=== PATIENT | female | born 1930 | race Caucasian/White ===

== ENCOUNTER 2016-09-29 05:02 | Emergency (ER) | payer MEDICARE, BC ==
[2016-09-29 06:27] LABS: ABSOLUTE EOSINOPHILS # (AUTO) 0.2 10^3/uL (0.0-0.6); ABSOLUTE LYMPHOCYTES (AUTO) 0.9 10^3/uL (0.5-4.7); ABSOLUTE MONOCYTES (AUTO) 0.8 10^3/uL (0.1-1.4); ABSOLUTE NEUT (AUTO) 4.8 10^3/uL (1.7-8.2); BASOPHILS % (AUTO) 0.6 % (0-2); HEMATOCRIT 38.3 % (36.0-47.0); HEMOGLOBIN 12.4 g/dL (12.0-15.5); HGB HCT DIFFERENCE -1.1; LYMPHOCYTES % (AUTO) 12.9 % (13-45); MEAN CORPUSCULAR HEMOGLOBIN 30.9 pg (27.0-33.4); MEAN CORPUSCULAR HGB CONC 32.3 g/dL (32.0-36.0); MEAN CORPUSCULAR VOLUME 96 fl (80-97); MONOCYTES % (AUTO) 11.7 % (3-13); RED CELL DISTRIBUTION WIDTH 14.1 % (11.5-14.0); SEGMENTED NEUTROPHILS % (AUTO) 71.8 % (42-78); WHITE BLOOD COUNT 6.7 10^3/uL (4.0-10.5)
[2016-09-29 06:32] LABS: ALANINE AMINOTRANSFERASE 23 U/L (9-52); ALKALINE PHOSPHATASE 79 U/L (38-126); ANION GAP 9 (5-19); ASPARTATE AMINO TRANSFERASE 28 U/L (14-36); BILIRUBIN,TOTAL 0.7 mg/dL (0.2-1.3); BLOOD UREA NITROGEN 19 mg/dL (7-20); CALCIUM 9.5 mg/dL (8.4-10.2); CARBON DIOXIDE 29 mmol/L (22-30); CHLORIDE 105 mmol/L (98-107); CREATINE KINASE 47 U/L (30-135); CREATININE RESULT 0.64 mg/dL (0.52-1.25); GLUCOSE 103 mg/dL (75-110); POTASSIUM 4.5 mmol/L (3.6-5.0); SODIUM 142.6 mmol/L (137-145); TOTAL PROTEIN 6.6 g/dL (6.3-8.2)
[2016-09-29 06:44] LABS: CREATINE KINASE MB 0.74 ng/mL (<4.55); TROPONIN I 0.012 ng/mL
[2016-09-29 09:07] LABS: APPEARANCE,URINE CLEAR; BILIRUBIN,URINE NEGATIVE (NEGATIVE); GLUCOSE, URINE NEGATIVE (NEGATIVE); KETONES,URINE NEGATIVE (NEGATIVE); LEUKOCYTE ESTERASE,URINE NEGATIVE (NEGATIVE); NITRITE,URINE NEGATIVE (NEGATIVE); PROTEIN,URINE NEGATIVE (NEGATIVE); URINE SPECIFIC GRAVITY 1.011; UROBILINOGEN,URINE NEGATIVE mg/dL (<2.0)
--- NOTE | 2016-09-29 09:33 | ER Document Report ---
ED General - General Chief Complaint: Nausea/Vomiting Stated Complaint: NAUSEA/VOMITING Mode of Arrival: Ambulatory Information source: Patient Notes: 86-year-old female presents with complaints of dizziness sensation room spinning. Patient denies any chest pain shortness breath difficulty breathing down pain or any other concerns except over the past few days she's been hearing a swishing sound in her ears. Patient notes it sound like a grinding rocks sound earlier today. Patient denies any neurological deficits or any other concerns - HPI Onset: Just prior to arrival Onset/Duration: Sudden Quality of pain: No pain Severity: Mild Pain Level: Denies Associated symptoms: Other Exacerbated by: Denies Relieved by: Denies Similar symptoms previously: Yes Recently seen / treated by doctor: Yes Past Medical History - Social History Smoking Status: Never Smoker Cigarette use (# per day): No Chew tobacco use (# tins/day): No Smoking Education Provided: No Family History: Reviewed & Not Pertinent Review of Systems - Review of Systems Notes: REVIEW OF SYSTEMS: CONSTITUTIONAL : Denies fever, chills, or sweats. Denies recent illness. EENT: Denies eye, ear, throat, or mouth pain or symptoms. Denies nasal or sinus congestion or discharge. Denies throat, tongue, or mouth swelling or difficulty swallowing. CARDIOVASCULAR: Denies chest pain. Denies palpitations or racing or irregular heart beat. Denies ankle edema. RESPIRATORY: Denies cough, cold, or chest congestion. Denies shortness of breath, difficulty breathing, or wheezing. GASTROINTESTINAL: Denies abdominal pain or distention. Denies nausea, vomiting , or diarrhea. Denies blood in vomitus, stools, or per rectum. Denies black, tarry stools. Denies constipation. GENITOURINARY: Denies difficulty urinating, painful urination, burning, frequency, blood in urine, or discharge. FEMALE GENITOURINARY: Denies vaginal bleeding, heavy or abnormal periods, irregular periods. Denies vaginal discharge or odor. MUSCULOSKELETAL: Denies back or neck pain or stiffness. Denies joint pain or swelling. SKIN: Denies rash, lesions or sores. HEMATOLOGIC : Denies easy bruising or bleeding. LYMPHATIC: Denies swollen, enlarged glands. NEUROLOGICAL: Admits to dizziness PSYCHIATRIC: Denies anxiety or stress. Denies depression, suicidal ideation, or homicidal ideation. ALL OTHER SYSTEMS REVIEWED AND NEGATIVE. Dictation was performed using Dragon voice recognition software PHYSICAL EXAMINATION: GENERAL: Well-appearing, well-nourished and in no acute distress. HEAD: Atraumatic, normocephalic. EYES: Pupils equal round and reactive to light, extraocular movements intact, conjunctiva are normal. ENT: Nares patent, oropharynx clear without exudates. Moist mucous membranes. NECK: Normal range of motion, supple without lymphadenopathy LUNGS: Breath sounds clear to auscultation bilaterally and equal. No wheezes rales or rhonchi. HEART: Regular rate and rhythm without murmurs ABDOMEN: Soft, nontender, nondistended abdomen. No guarding, no rebound. No masses appreciated. Female : deferred Musculoskeletal: Normal range of motion, no pitting or edema. No cyanosis. NEUROLOGICAL: Cranial nerves grossly intact. Normal speech, normal gait. Normal sensory, motor exams PSYCH: Normal mood, normal affect. SKIN: Warm, Dry, normal turgor, no rashes or lesions noted. Physical Exam - Vital signs Vitals: Temp Pulse Resp BP Pulse Ox 97.7 F 84 17 151/92 H 97 09/29/16 05:06 09/29/16 05:06 09/29/16 05:06 09/29/16 05:06 09/29/16 05:06 Course - Re-evaluation Re-evalutation: 09/29/16 09:32 Patient symptoms have resolved prior to arrival, she refused treatment. Imaging lab work note no significant abnormality, I believe this is secondary to intra-ear issue After performing a Medical Screening Examination, I estimate there is LOW risk for INTRACRANIAL HEMORRHAGE, ISCHEMIC CVA, MALIGNANT DYSRHYTHMIA, ACUTE CORONARY SYNDROME, MENINGITIS, PULMONARY EMBOLISM, or SEPSIS thus I consider the discharge disposition reasonable. The patient and I have discussed the diagnosis and risks, and we agree with discharging home with close follow-up with the understanding that symptoms and presentations can change. We also discussed returning to the Emergency Department immediately if new or worsening symptoms occur. We have discussed the symptoms which are most concerning (e.g., changing or worsening pain, weakness, vomiting, fever) that necessitate immediate return. - Vital Signs Vital signs: Temp Pulse Resp BP Pulse Ox 97.7 F 84 17 151/92 H 97 09/29/16 05:06 09/29/16 05:06 09/29/16 05:06 09/29/16 05:06 09/29/16 05:06 - Laboratory Result Diagrams: 09/29/16 05:50 09/29/16 05:50 Laboratory results interpreted by me: 09/29/16 09/29/16 05:50 05:50 RDW 14.1 H Lymphocytes % 12.9 L NT-Pro-B Natriuret Pep 1230 H - Diagnostic Test Radiology reviewed: Image reviewed, Reports reviewed - EKG Interpretation by Me EKG shows normal: Sinus rhythm, [place], Intervals, QRS Complexes Discharge - Discharge Clinical Impression: Vertigo Condition: Stable Disposition: HOME, SELF-CARE Additional Instructions: Vertigo You have experienced an episode of vertigo -- a whirling dizziness which may be accompanied by nausea and vomiting or staggering. Vertigo is often caused by an irritation of the inner ear, in which case it is called labyrinthitis. It can also be a symptom of a degenerating inner ear, nerve damage, or brain injury. Your physician has evaluated you to determine whether any further testing is necessary. Vertigo is often treated with dramamine or meclizine. These medications are helpful, but stronger medication may be needed if you are vomiting. Rest in bed. You should not drive or operate machinery until completely better. It may take one to three weeks for recovery. If there are new symptoms, such as decreased hearing or vision, severe headache, weakness or faintness, or confusion, call the physician. Please contact the following office for an appointment tomorrow or returm immediately if there are any other concerns [facility] Address: [address] [place], [place] [id number] Prescriptions: Meclizine HCl [Antivert 25 mg Tablet] 25 mg PO TID PRN #21 tablet PRN Reason:
[2016-09-29 09:43] VITALS: BP 127/54
--- NOTE | 2016-09-29 14:57 | EKG REPORT ---
SEVERITY:- ABNORMAL ECG - AFIB/FLUTTER AND VENTRICULAR-PACED RHYTHM : Confirmed by: Jacklyn Dias MD 29-Sep-2016 14:56:26
== END 2016-09-29 09:45 | disposition home or self-care (01) ==
LOC: ER 05:02
DX: R42 Dizziness and giddiness (principal)
CPT/HCPCS: 36415; 70450; 71020; 80053; 81001; 82550; 82553; 83880; 84484; 85025; 93005; 93010; 99284

== ENCOUNTER 2017-11-20 18:59 | Inpatient (IN) | payer MEDICARE, BC ==
[2017-11-20] MEDS ORDERED: ACETAMINOPHEN 325 MG TABLET PO ONE (19:11)
--- NOTE | 2017-11-20 19:31 | ER Document Report ---
ED General - General Chief Complaint: Fall Injury Stated Complaint: FALL/HIP PAIN Time Seen by Provider: 11/20/17 19:17 Mode of Arrival: Medic Information source: Patient, Relative Notes: 87 y/o female with history of osteoarthritis, hypertension, atrial fibrillation (on pradaxa), scoliosis and a pacemaker presents after a trip and fall at home with complaint of left hip and left flank pain. Patient states that she turned around too quickly while at home and fell landing on her left side onto a hardwood floor. She denies any head injury, loss of consciousness. She was unable to get off the floor independently. She does have a history of previous left hip fracture in 1999. Denies preceding CP, SOB, dizziness. She was under orthopedic care with Dr. Schuster for chronic back pain. She has otherwise been feeling well. she reports she is eating and drinking normally. Patient does live alone but has daughter close by who is at the bedside. TRAVEL OUTSIDE OF THE [place] IN LAST 30 DAYS: No - HPI Onset: Just prior to arrival Quality of pain: Throbbing Severity: Mild Associated symptoms: None Exacerbated by: Sitting, Movement Relieved by: Remaining still Similar symptoms previously: No Recently seen / treated by doctor: No - Related Data Allergies/Adverse Reactions: procaine [From Novocain] Allergy (Verified 11/20/17 19:19) Past Medical History - General Information source: Patient, Relative - Social History Smoking Status: Never Smoker Chew tobacco use (# tins/day): No Frequency of alcohol use: None Drug Abuse: None Lives with: Alone Family History: Reviewed & Not Pertinent Patient has suicidal ideation: No Patient has homicidal ideation: No - Past Medical History Cardiac Medical History: Reports: Hx Atrial Fibrillation, Hx Hypertension Renal/ Medical History: Denies: Hx Peritoneal Dialysis Review of Systems - Review of Systems Constitutional: denies: Weakness EENT: denies: Blurred vision, Double vision - chest wall pain-left., Vertigo Cardiovascular: denies: Palpitations, Dyspnea, Syncope, Dizziness, Lightheaded Respiratory: Hurts to breathe. denies: Short of breath Gastrointestinal: denies: Nausea, Vomiting Genitourinary: Flank pain. denies: Dysuria Female Genitourinary: No symptoms reported Musculoskeletal: Joint pain - left hip pain. denies: Deformity Skin: denies: Change in color, Rash Physical Exam - Vital signs Vitals: Temp 97.8 F 11/20/17 19:18 Interpretation: Normal. No: Tachycardic, Febrile - General General appearance: Appears well, Alert In distress: Mild - HEENT Head: Normocephalic - no cephalohematoma, midface stable. no blood in pharyn or nose. no hemotypanum., Atraumatic. No: Abrasions - Neck without midline tenderness or stepoffs., Arreguin's sign, Ecchymosis, Open wounds, Tenderness Eyes: Normal Conjunctiva: Normal Extraocular movements intact: Yes Pupils: PERRL Mucous membranes: Dry Neck: Normal, Other - No midline tenderness.. No: Neck mass - Respiratory Respiratory status: No respiratory distress. No: Respiratory distress Chest status: Tender - Left lateral chest wall. No ecchymosis or crepitus, Pain with deep breathing. No: Ecchymosis Breath sounds: Normal Chest palpation: Normal. No: Flail segment - Cardiovascular Rhythm: Irregularly irregular Heart sounds: Normal auscultation Murmur: No Pulses: Normal: Radial, Dorsalis pedis Normal capillary refill: Yes - Abdominal Inspection: Normal Distension: No distension Bowel sounds: Normal Tenderness: Tender - suprapubic TTP Organomegaly: No organomegaly - Extremities General upper extremity: Normal inspection, Normal strength General lower extremity: Tender, Normal color, Other - No obvious deformity. No : Normal ROM, Normal weight bearing Shoulder: Normal Hip: Tender, Pain with ROM, Unable to bear weight. No: Deformity, Dislocation, Ecchymosis Thigh: Tender. No: Ecchymosis Ankle: Normal Foot: Normal - Neurological Neuro grossly intact: Yes Cognition: Normal Orientation: AAOx4 Hima Coma Scale Eye Opening: Spontaneous Hima Coma Scale Verbal: Oriented [place] Coma Scale Motor: Obeys Commands [place] Coma Scale Total: 15 Speech: Normal Motor strength normal: LUE, RUE, LLE, RLE Sensory: Normal - Psychological Associated symptoms: Normal affect, Normal mood - Skin Skin Temperature: Warm Skin Moisture: Dry Skin Color: Normal. negative: Erythema, Ecchymosis Course - Re-evaluation Re-evalutation: 11/20/17 22:29 Patient was reevaluated and states that pain has improved but is still present. Potassium replenished. Patient received additional morphine for pain and is still unable to ambulate. Hip X-Ray 11/20/17 19:10 IMPRESSION: 1. Osteopenia. No radiographic evidence for acute fracture at the left hip. 2. Fractures with callus formation at the left superior and inferior pubic rami , suggestive of remote injury. Additional linear lucencies at the left pubic bone, may represent artifact versus nondisplaced acute fractures. No prior studies are available for comparison. Please correlate with clinical history/ exam. Chest X-Ray 11/20/17 19:31 IMPRESSION: Mild cardiomegaly. Otherwise, no acute radiographic finding in the chest. Pelvis CT 11/20/17 21:20 IMPRESSION: Fracture left superior pubic ramus. 11/21/17 00:[address] Fairchild orthopedic surgeon on-call and reviewed CT findings. No further recommendations at this time. I Will discuss patient with hospitalist. 11/21/17 00:[address] Goins who wants a surgery consult. Spoke to Dr. Barcenas who will not admit the patient primarily but will be on consult. 11/21/17 01:06 11/21/17 01:14 A 87-year-old female with history of atrial fibrillation, pacemaker, hypertension, osteoarthritis, previous pelvic fracture on Pradaxa had a trip and fall at home prior to arrival. Patient found to have a superior rami fracture with an associated hematoma. Repeat CT with IV contrast shows no active extravasation but recommends repeat CT in 24 hours. 11/21/17 01:20 Admission accepted by hospitalist pending normal troponin. 11/21/17 02:49 Patient signed out to Dr. Cazares pending troponin results. Informed daughter of the plan to admit her mother prior to wi leaving. Both daughter and patient are agreeable to admission. Laboratory 11/20/17 11/20/17 11/21/17 22:52 23:03 00:59 WBC 12.8 H RBC 3.91 Hgb 12.9 Hct 38.1 MCV 97 MCH 33.0 MCHC 33.8 RDW 14.9 H Plt Count 271 Seg Neutrophils % 78.3 H Lymphocytes % 10.0 L Monocytes % 10.1 Eosinophils % 1.1 Basophils % 0.5 Absolute Neutrophils 10.0 H Absolute Lymphocytes 1.3 Absolute Monocytes 1.3 Absolute Eosinophils 0.1 Absolute Basophils 0.1 PT 16.8 H INR 1.28 APTT 53.6 H Sodium 130.2 L Potassium 3.2 L Chloride 98 Carbon Dioxide 27 Anion Gap 5 BUN 39 H Creatinine 0.73 Est GFR ( Amer) > 60 Est GFR (Non-Af Amer) > 60 Glucose 124 H Calcium 9.1 Creatine Kinase CK-MB (CK-2) Troponin I Urine Color Urine Appearance Urine pH Ur Specific Echo Urine Protein Urine Glucose (UA) Urine Ketones Urine Blood Urine Nitrite Urine Bilirubin Urine Urobilinogen Ur Leukocyte Esterase Urine WBC (Auto) Urine RBC (Auto) Urine Mucus (Auto) Urine Ascorbic Acid 11/21/17 11/21/17 11/21/17 00:59 00:59 01:25 WBC RBC Hgb Hct MCV MCH MCHC RDW Plt Count Seg Neutrophils % Lymphocytes % Monocytes % Eosinophils % Basophils % Absolute Neutrophils Absolute Lymphocytes Absolute Monocytes Absolute Eosinophils Absolute Basophils PT INR APTT Sodium Potassium Chloride Carbon Dioxide Anion Gap BUN Creatinine Est GFR ( Amer) Est GFR (Non-Af Amer) Glucose Calcium Creatine Kinase 65 CK-MB (CK-2) 1.05 Troponin I 0.018 Urine Color YELLOW Urine Appearance SLIGHTLY-CLOUDY Urine pH 5.0 Ur Specific Echo 1.044 Urine Protein NEGATIVE Urine Glucose (UA) 50 H Urine Ketones TRACE H Urine Blood NEGATIVE Urine Nitrite NEGATIVE Urine Bilirubin NEGATIVE Urine Urobilinogen NEGATIVE Ur Leukocyte Esterase NEGATIVE Urine WBC (Auto) 1 Urine RBC (Auto) 1 Urine Mucus (Auto) RARE Urine Ascorbic Acid 40 H - Vital Signs Vital signs: Temp Pulse Resp BP Pulse Ox 97.7 F 14 109/53 L 98 11/21/17 02:05 11/21/17 02:01 11/21/17 02:01 11/21/17 02:01 - Laboratory Result Diagrams: 11/20/17 22:52 11/20/17 23:03 Laboratory results interpreted by me: 11/20/17 11/20/17 11/21/17 22:52 23:03 00:59 WBC 12.8 H RDW 14.9 H Seg Neutrophils % 78.3 H Lymphocytes % 10.0 L Absolute Neutrophils 10.0 H PT 16.8 H APTT 53.6 H Sodium 130.2 L Potassium 3.2 L BUN 39 H Glucose 124 H Urine Glucose (UA) Urine Ketones Urine Ascorbic Acid 11/21/17 01:25 WBC RDW Seg Neutrophils % Lymphocytes % Absolute Neutrophils PT APTT Sodium Potassium BUN Glucose Urine Glucose (UA) 50 H Urine Ketones TRACE H Urine Ascorbic Acid 40 H - Diagnostic Test Radiology reviewed: Image reviewed, Reports reviewed - EKG Interpretation by Me EKG shows normal: abnormal: Sinus rhythm Rhythm: A.Fib - known a-fib Discharge - Discharge Clinical Impression: Hypokalemia, Inability to ambulate due to hip Pelvic fracture Qualifiers: Encounter type: initial encounter Pelvic bone location: other part of pelvis Fracture type: closed Qualified Code(s): S32.89XA - Fracture of other parts of pelvis, initial encounter for closed fracture Fracture of superior ramus of left pubis Qualifiers: Encounter type: initial encounter Fracture type: closed Qualified Code(s): S32.512A - Fracture of superior rim of left pubis, initial encounter for closed fracture Fall Qualifiers: Encounter type: initial encounter Qualified Code(s): W19.XXXA - Unspecified fall, initial encounter Condition: Good Admitting Provider: Hospitalist Referrals: SERGIO SCHUSTER MD [ASSOCIATE] - Follow up as needed BLAKE DELGADO MD [Primary Care Provider] - Follow up in 3-5 days
--- NOTE | 2017-11-20 20:29 | RADIOLOGY REPORT (SQ) ---
EXAM DESCRIPTION: HIP LEFT AP/LATERAL COMPLETED DATE/TIME: 11/20/2017 7:56 pm REASON FOR STUDY: fall COMPARISON: None. NUMBER OF VIEWS: Two views. TECHNIQUE: AP pelvis and additional frog-leg view of the left hip. LIMITATIONS: Osteopenia, limiting bony detail. FINDINGS: There is diffuse osteopenia. There is no acute fracture or dislocation at the left hip. Fractures with callus formation are seen at the left superior and inferior pubic rami. Additional li near lucencies are seen at the left pubic bone. The right hip joint is maintained. Degenerative luis nges at the visualized lower lumbar spine and at the bilateral sacroiliac joints. IMPRESSION: 1. Osteopenia. No radiographic evidence for acute fracture at the left hip. 2. Fractures with callus formation at the left superior and inferior pubic rami, suggestive of remote injury. Additional linear lucencies at the left pubic bone, may represent artifact versus nondispla ania acute fractures. No prior studies are available for comparison. Please correlate with clinical history/ exam. TECHNICAL DOCUMENTATION: JOB ID: [id number] 2010 [employer]- All Rights Reserved Reading location - IP/workstation name: [email or web address]
--- NOTE | 2017-11-20 20:33 | RADIOLOGY REPORT (SQ) ---
EXAM DESCRIPTION: CHEST PA/LAT COMPLETED DATE/TIME: 11/20/2017 7:56 pm REASON FOR STUDY: Fall left lower rib pain COMPARISON: Chest x-ray 09/29/2016. EXAM PARAMETERS: NUMBER OF VIEWS: two views TECHNIQUE: Digital Frontal and Lateral radiographic views of the chest acquired. RADIATION DOSE: NA LIMITATIONS: none FINDINGS: LUNGS AND PLEURA: No consolidation, pneumothorax or pleural effusion. MEDIASTINUM AND HILAR STRUCTURES: No masses or contour abnormalities. HEART AND VASCULAR STRUCTURES: The heart is mildly enlarged. No overt vascular congestion. BONES: There is osteopenia. No displaced rib fractures are noted. There is thoracolumbar scoliosis. HARDWARE: There is a right-sided pacemaker. IMPRESSION: Mild cardiomegaly. Otherwise, no acute radiographic finding in the chest. TECHNICAL DOCUMENTATION: JOB ID: [id number] [place]-[id number] 2010 [employer]- All Rights Reserved Reading location - IP/workstation name: [email or web address]
[2017-11-20] MEDS ORDERED: TRAMADOL HCL 50 MG TABLET PO ONE (21:19)
--- NOTE | 2017-11-20 22:08 | RADIOLOGY REPORT (SQ) ---
EXAM DESCRIPTION: CT PELVIS WITHOUT COMPLETED DATE/TIME: 11/20/2017 9:47 pm REASON FOR STUDY: fall with left hip pain COMPARISON: None. TECHNIQUE: CT scan of the pelvis performed without intravenous or oral contrast. Images reviewed wi th soft tissue and bone windows. Reconstructed coronal and sagittal MPR images reviewed. All images stored on PACS. All CT scanners at this facility use dose modulation, iterative reconstruction, and/or weight based d osing when appropriate to reduce radiation dose to as low as reasonably achievable (ALARA). [facility]: Dose Right [facility]: CareDose [facility]: Dose Right [facility]: Teradose 4D [facility]: Smart [employer] RADIATION DOSE: CT Rad equipment meets quality standard of care and radiation dose reduction techniq ues were employed. CTDIvol: 14.0 mGy. DLP: 401 mGy-cm. mGy. LIMITATIONS: None. FINDINGS: Bones are osteopenic. Nondisplaced fracture of the left superior pubic ramus. There is a djacent hematoma. There is a healed fracture of the left inferior pubic ramus. No other acute fract ure identified. IMPRESSION: Fracture left superior pubic ramus. TECHNICAL DOCUMENTATION: JOB ID: [id number] Quality ID # [id number]: Final reports with documentation of one or more dose reduction techniques (e.g., Au tomated exposure control, adjustment of the mA and/or kV according to patient size, use of iterative reconstruction technique) 2010 [employer]- All Rights Reserved Reading location - IP/workstation name: [email or web address]
[2017-11-20] MEDS ORDERED: MORPHINE SULFATE 10 MG/ML INJ IV ONE (22:27)
[2017-11-20] MEDS ORDERED: ONDANSETRON 4 MG TAB.RAPDIS PO ONE (22:27)
[2017-11-20 23:37] LABS: ANION GAP 5 (5-19); BLOOD UREA NITROGEN 39 mg/dL (7-20); CALCIUM 9.1 mg/dL (8.4-10.2); CARBON DIOXIDE 27 mmol/L (22-30); CHLORIDE 98 mmol/L (98-107); GLUCOSE 124 mg/dL (75-110); POTASSIUM 3.2 mmol/L (3.6-5.0); SODIUM 130.2 mmol/L (137-145)
[2017-11-20] MEDS ORDERED: POTASSIUM CHLORIDE 20 MEQ/15 ML UDCUP PO ONE (23:42)
[2017-11-20] MEDS ORDERED: NORMAL SALINE 1000 ML 1,000 ML IV ONE (23:43)
--- NOTE | 2017-11-21 00:31 | RADIOLOGY REPORT (SQ) ---
EXAM DESCRIPTION: CT PELVIS WITH CLINICAL HISTORY: 87 years Female, Hematoma on CT concerning for active extravasation COMPARISON: CT and CR, same day. TECHNIQUE: 64 mL Isovue-370 IV contrast. Coronal and sagittal reformat. This exam was performed according to our departmental dose-optimization program, which includes automated exposure control, adjustment of the mA and/or kV according to patient size and/or use of iterative reconstruction technique. Limitation: No delayed imaging of the pelvis/urinary bladder. FINDINGS: Comminuted fracture of the left paracentral pubic symphysis and left superior pubic ramus with adjacent moderate isodense 1.9 cm, 39 HU thickening of the left obturator internus compared to 1.2 cm on the right consistent with hematoma. No active hemorrhage/contrast extravasation discerned. Obturator artery appears patent bilaterally. Chronic deformity of the left inferior pubic ramus and junction of the left inferior pubic ramus/ischium consistent with prior injury. Normal appendix. Moderate diverticulosis of the colon. No significant free fluid in the pelvis. Urinary bladder appears intact. Lower lumbar spondylosis. Bone demineralization. Mild-moderate vertebral height loss at the L5 and L4 levels, indeterminate age. Atherosclerosis. IMPRESSION: Comminuted fracture of the left superior pubic ramus with adjacent hematoma of the left obturator internus. No active hemorrhage identified. Consider CT surveillance in 24 hours or sooner as clinically warranted.
[2017-11-21 00:46] LABS: ABSOLUTE BASOPHILS # (AUTO) 0.1 10^3/uL (0.0-0.2); ABSOLUTE EOSINOPHILS # (AUTO) 0.1 10^3/uL (0.0-0.6); ABSOLUTE LYMPHOCYTES (AUTO) 1.3 10^3/uL (0.5-4.7); ABSOLUTE MONOCYTES (AUTO) 1.3 10^3/uL (0.1-1.4); BASOPHILS % (AUTO) 0.5 % (0-2); EOSINOPHILS % (AUTO) 1.1 % (0-6); HEMATOCRIT 38.1 % (36.0-47.0); HEMOGLOBIN 12.9 g/dL (12.0-15.5); MEAN CORPUSCULAR HGB CONC 33.8 g/dL (32.0-36.0); MEAN CORPUSCULAR VOLUME 97 fl (80-97); MONOCYTES % (AUTO) 10.1 % (3-13); PLATELET COUNT 271 10^3/uL (150-450); RED BLOOD COUNT 3.91 10^6/uL (3.72-5.28); RED CELL DISTRIBUTION WIDTH 14.9 % (11.5-14.0); SEGMENTED NEUTROPHILS % (AUTO) 78.3 % (42-78); TOTAL CELLS COUNTED % (AUTO) 100 %; WHITE BLOOD COUNT 12.8 10^3/uL (4.0-10.5)
[2017-11-21 01:18] LABS: INTERNATIONAL RATION (INR) 1.28; PROTHROMBIN TIME 16.8 SEC (11.4-15.4)
[2017-11-21 01:20] LABS: PARTIAL THROMBOPLASTIN TIME 53.6 SEC (23.5-35.8)
--- NOTE | 2017-11-21 01:22 | PDOC CONSULTATION ---
Consultation Consult Date: 11/21/17 Consult reason:: left pelvic fracture History of Present Illness Admission Date/PCP: BLAKE DELGADO MD History of Present Illness: CATHERINE ARANGO is a 87 year old female who fell this afternoon while in the kitchen. No reported LOC or other neurological findings according to the daughter who went to see her mother shortly after the event. She c/o lef lower pelvis pain and difficult ambulation. A CT scan A/P shpws a left superior pubic ramus comminuted fracture with small obteratir hematoma. She is on Pradaxa and has a pacemaker because of atrial fibrillation and has a history of TIA in the past. Past Medical History Cardiac Medical History: Reports: Atrial Fibrillation, Hypertension Endocrine Medical History: Reports: Other - TIAs in the past Past Surgical History Past Surgical History: Reports: Pacemaker Social History Lives with: Alone Smoking Status: Never Smoker Frequency of Alcohol Use: None Hx Recreational Drug Use: No Family History Family History: Reviewed & Not Pertinent Parental Family History Reviewed: No Children Family History Reviewed: No Sibling(s) Family History Reviewed.: No Medication/Allergy Home Medications: Meclizine HCl [Antivert 25 mg Tablet] 25 mg PO TID PRN #21 tablet 09/29/16 Allergies/Adverse Reactions: procaine [From Novocain] Allergy (Verified 11/20/17 19:19) Physical Exam Vital Signs: Temp Pulse Resp BP Pulse Ox 97.9 F 15 141/61 H 95 11/20/17 23:00 11/21/17 01:00 11/21/17 00:01 11/21/17 01:00 Intake & Output 11/19/17 11/20/17 11/21/17 06:59 06:59 06:59 Weight 56.699 kg General appearance: PRESENT: no acute distress, cooperative Head exam: PRESENT: atraumatic Neck exam: PRESENT: full ROM Respiratory exam: PRESENT: clear to auscultation miguel Cardiovascular exam: PRESENT: RRR GI/Abdominal exam: PRESENT: normal bowel sounds, soft, tenderness - left lower quadrant near symphisis pubis Extremities exam: PRESENT: other - decreased ROM LLE due to pain Neurological exam: PRESENT: alert, awake, other - no neuro deficits Skin exam: PRESENT: skin tears - left hand Results Laboratory Results: 11/20/17 22:52 11/20/17 23:03 11/20/17 11/20/17 22:52 23:03 WBC 12.8 H RBC 3.91 Hgb 12.9 Hct 38.1 MCV 97 MCH 33.0 MCHC 33.8 RDW 14.9 H Plt Count 271 Seg Neutrophils % 78.3 H Lymphocytes % 10.0 L Monocytes % 10.1 Eosinophils % 1.1 Basophils % 0.5 Absolute Neutrophils 10.0 H Absolute Lymphocytes 1.3 Absolute Monocytes 1.3 Absolute Eosinophils 0.1 Absolute Basophils 0.1 Sodium 130.2 L Potassium 3.2 L Chloride 98 Carbon Dioxide 27 Anion Gap 5 BUN 39 H Creatinine 0.73 Est GFR ( Amer) > 60 Est GFR (Non-Af Amer) > 60 Glucose 124 H Calcium 9.1 Impressions: Hip X-Ray 11/20/17 19:10 IMPRESSION: 1. Osteopenia. No radiographic evidence for acute fracture at the left hip. 2. Fractures with callus formation at the left superior and inferior pubic rami , suggestive of remote injury. Additional linear lucencies at the left pubic bone, may represent artifact versus nondisplaced acute fractures. No prior studies are available for comparison. Please correlate with clinical history/ exam. Chest X-Ray 11/20/17 19:31 IMPRESSION: Mild cardiomegaly. Otherwise, no acute radiographic finding in the chest. Pelvis CT 11/20/17 22:35 IMPRESSION: Comminuted fracture of the left superior pubic ramus with adjacent hematoma of the left obturator internus. No active hemorrhage identified. Consider CT surveillance in 24 hours or sooner as clinically warranted. Assessment & Plan - Diagnosis (1) Fall Qualifiers: Encounter type: initial encounter Qualified Code(s): W19.XXXA - Unspecified fall, initial encounter (2) Fracture of superior ramus of left pubis Qualifiers: Encounter type: initial encounter Fracture type: closed Qualified Code(s) : S32.512A - Fracture of superior rim of left pubis, initial encounter for closed fracture Is this a current diagnosis for this admission?: Yes - Plan Summary Plan Summary: A/ Fall with secondary comminuted fracture of left superior pubic ramus Small internal obturator muscle hematoma Patient with atrial fibrillation on Pradaxa (last dose last evening) S/p pacemaker placement for atrial fibrillation Hx of TIA Stable H/H P/ Admit by Hospitalist recommend Orthopaedic Surgery service consult Follow serial H/H Keep NPO for now IV fluids Hold Pradaxa Insert Bhandari as the patient cannot void If patient H/H remains stable during the next 24 hrs, she can be discharged to home by the General Surgery viewpoint
[2017-11-21] MEDS ORDERED: NORMAL SALINE 1000 ML 1,000 ML IV PRN (01:25)
[2017-11-21] MEDS ORDERED: IPRATROPIUM/ALBUTEROL 0.5-2.5 MG/3 ML AMPUL NEB PRN (01:33)
[2017-11-21] MEDS ORDERED: KETOROLAC TROMETHAMINE INJ/PF 30 MG/1 ML SDV IV PRN (01:33)
[2017-11-21] MEDS ORDERED: MAG HYDROX/AL HYDROX/SIMETH SUSP 30 ML UDCUP PO PRN (01:33)
[2017-11-21] MEDS ORDERED: HYDRALAZINE HCL INJ/PF 20 MG/1 ML SDV IV PRN (01:33)
[2017-11-21] MEDS ORDERED: ACETAMINOPHEN 325 MG TABLET PO PRN (01:33)
[2017-11-21 01:39] LABS: APPEARANCE,URINE SLIGHTLY-CLOUDY; BILIRUBIN,URINE NEGATIVE (NEGATIVE); COLOR,URINE YELLOW; GLUCOSE, URINE 50 mg/dL (NEGATIVE); KETONES,URINE TRACE mg/dL (NEGATIVE); LEUKOCYTE ESTERASE,URINE NEGATIVE (NEGATIVE); NITRITE,URINE NEGATIVE (NEGATIVE); PROTEIN,URINE NEGATIVE (NEGATIVE); URINE SPECIFIC GRAVITY 1.044; UROBILINOGEN,URINE NEGATIVE mg/dL (<2.0)
[2017-11-21 01:39] LABS: CREATINE KINASE MB 1.05 ng/mL (<4.55); TROPONIN I 0.018 ng/mL
--- NOTE | 2017-11-21 05:04 | PDOC H&P ---
History of Present Illness Admission Date/PCP: 11/21/17 03:32 BLAKE DELGADO MD Patient complains of: Left hip pain History of Present Illness: CATHERINE ARANGO is a 87 year old female with a past medical history of atrial fibrillation on Pradaxa, hypertension, osteoporosis and gait instability requiring a front wheeled walker. Patient presents after a mechanical slip resulting in a left-sided fall to the floor and intractable pain. In the emergency room she is found to have a left superior pubic rami comminuted fracture with small hematoma complicated by Pradaxa. In the emergency room she requires narcotics at rest and is unable to stand, hospitalist is consulted for observation. Past Medical History Cardiac Medical History: Reports: Atrial Fibrillation, Hypertension Endocrine Medical History: Reports: Other - TIAs in the past Past Surgical History Past Surgical History: Reports: Orthopedic Surgery - Right-sided hip fracture, Pacemaker Social History Information Source: Patient Lives with: Alone Smoking Status: Never Smoker Frequency of Alcohol Use: None Hx Recreational Drug Use: No - Advance Directive Resuscitation Status: Full Code Family History Family History: Hypertension Parental Family History Reviewed: Yes Children Family History Reviewed: Yes Sibling(s) Family History Reviewed.: Yes Medication/Allergy Home Medications: Meclizine HCl [Antivert 25 mg Tablet] 25 mg PO TID PRN #21 tablet 09/29/16 Allergies/Adverse Reactions: procaine [From Novocain] Allergy (Verified 11/20/17 19:19) Review of Systems Constitutional: ABSENT: chills, fever(s), headache(s), weight gain, weight loss Eyes: ABSENT: visual disturbances Ears: ABSENT: hearing changes Cardiovascular: ABSENT: chest pain, dyspnea on exertion, edema, orthropnea, palpitations Respiratory: ABSENT: cough, hemoptysis Gastrointestinal: ABSENT: abdominal pain, constipation, diarrhea, hematemesis, hematochezia, nausea, vomiting Genitourinary: ABSENT: dysuria, hematuria Musculoskeletal: ABSENT: joint swelling Integumentary: ABSENT: rash, wounds Neurological: ABSENT: abnormal gait, abnormal speech, confusion, dizziness, focal weakness, syncope Psychiatric: ABSENT: anxiety, depression, homidical ideation, suicidal ideation Endocrine: ABSENT: cold intolerance, heat intolerance, polydipsia, polyuria Hematologic/Lymphatic: ABSENT: easy bleeding, easy bruising Physical Exam Vital Signs: Temp Pulse Resp BP Pulse Ox 98.2 F 12 106/48 L 96 11/21/17 04:55 11/21/17 04:01 11/21/17 04:00 11/21/17 04:01 General appearance: PRESENT: cooperative, mild distress, thin Head exam: PRESENT: atraumatic, normocephalic Eye exam: PRESENT: conjunctiva pink, EOMI, PERRLA. ABSENT: scleral icterus Ear exam: PRESENT: normal external ear exam Mouth exam: PRESENT: moist, tongue midline Neck exam: ABSENT: carotid bruit, JVD, lymphadenopathy, thyromegaly Respiratory exam: PRESENT: clear to auscultation miguel. ABSENT: rales, rhonchi, wheezes Cardiovascular exam: PRESENT: RRR. ABSENT: diastolic murmur, rubs, systolic murmur Pulses: PRESENT: normal dorsalis pedis pul Vascular exam: PRESENT: normal capillary refill GI/Abdominal exam: PRESENT: normal bowel sounds, soft. ABSENT: distended, guarding, mass, organolmegaly, rebound, tenderness Rectal exam: PRESENT: deferred Extremities exam: PRESENT: full ROM. ABSENT: calf tenderness, clubbing, pedal edema Musculoskeletal exam: ABSENT: ambulatory, full ROM - Hip flexion on the left limited by pain Neurological exam: PRESENT: alert, awake, oriented to person, oriented to place , oriented to time, oriented to situation, CN II-XII grossly intact. ABSENT: motor sensory deficit Psychiatric exam: PRESENT: appropriate affect, normal mood. ABSENT: homicidal ideation, suicidal ideation Skin exam: PRESENT: dry, intact, warm. ABSENT: cyanosis, rash Results Impressions: Hip X-Ray 11/20/17 19:10 IMPRESSION: 1. Osteopenia. No radiographic evidence for acute fracture at the left hip. 2. Fractures with callus formation at the left superior and inferior pubic rami , suggestive of remote injury. Additional linear lucencies at the left pubic bone, may represent artifact versus nondisplaced acute fractures. No prior studies are available for comparison. Please correlate with clinical history/ exam. Chest X-Ray 11/20/17 19:31 IMPRESSION: Mild cardiomegaly. Otherwise, no acute radiographic finding in the chest. Pelvis CT 11/20/17 22:35 IMPRESSION: Comminuted fracture of the left superior pubic ramus with adjacent hematoma of the left obturator internus. No active hemorrhage identified. Consider CT surveillance in 24 hours or sooner as clinically warranted. Assessment & Plan - Diagnosis (1) Fracture of superior ramus of left pubis Qualifiers: Encounter type: initial encounter Fracture type: closed Qualified Code(s) : S32.512A - Fracture of superior rim of left pubis, initial encounter for closed fracture Is this a current diagnosis for this admission?: Yes Plan: Supportive and symptomatic care, physical therapy evaluation. Consider repeat CT imaging if pain not improved. (2) Anticoagulation adequate Is this a current diagnosis for this admission?: Yes Plan: Continue Pradaxa for A. fib (3) Fall Qualifiers: Encounter type: initial encounter Qualified Code(s): W19.XXXA - Unspecified fall, initial encounter Is this a current diagnosis for this admission?: Yes Plan: Physical therapy consultation (4) Hypokalemia Is this a current diagnosis for this admission?: Yes Plan: Repletion and evaluation of magnesium and follow-up potassium. - Time Time Spent: 30 to 50 Minutes
[2017-11-21] MEDS: NORMAL SALINE 1000 ML 1,000 ML IV PRN ×2 (05:14→09:11)
[2017-11-21 05:54] LABS: ANION GAP 6 (5-19); BLOOD UREA NITROGEN 25 mg/dL (7-20); CALCIUM 8.4 mg/dL (8.4-10.2); CARBON DIOXIDE 26 mmol/L (22-30); CHLORIDE 101 mmol/L (98-107); GLUCOSE 107 mg/dL (75-110); POTASSIUM 4.1 mmol/L (3.6-5.0); SODIUM 133.1 mmol/L (137-145)
--- NOTE | 2017-11-21 06:46 | PDOC CONSULTATION ---
Consultation Consult Date: 11/21/17 Consult reason:: Left pubic ramus fracture History of Present Illness Admission Date/PCP: 11/21/17 03:32 BLAKE DELGADO MD History of Present Illness: The patient is an 87-year-old white female from [place] who fell potentially 20 years ago over her dog and sustained a left pelvis fracture which was treated conservatively and healed uneventfully. Most recently she has been treated by Dr. Delgado for osteoporosis and by Dr. Marvin for her lumbar spine issues. Today she presents the emergency room status post a fall with a recurrent left pubic ramus fracture Past Medical History Cardiac Medical History: Reports: Atrial Fibrillation, Hypertension Endocrine Medical History: Reports: Other - TIAs in the past Musculoskeletal History Note: Patient had nonoperative therapy for a left pubic ramus fracture about 20 years ago in [place]. She is being treated by Dr. Delgado for osteoporosis with Prolia. She is also being treated by Dr. Marvin with serial injections for lumbar spine pathology. Past Surgical History Past Surgical History: Reports: Pacemaker Social History Information Source: Patient, [facility] Records Lives with: Alone Smoking Status: Never Smoker Frequency of Alcohol Use: None Hx Recreational Drug Use: No - Advance Directive Resuscitation Status: Full Code Family History Family History: Hypertension Parental Family History Reviewed: No Children Family History Reviewed: No Sibling(s) Family History Reviewed.: No Medication/Allergy Home Medications: Meclizine HCl [Antivert 25 mg Tablet] 25 mg PO TID PRN #21 tablet 09/29/16 Allergies/Adverse Reactions: procaine [From Novocain] Allergy (Verified 11/20/17 19:19) Review of Systems All systems: as per [facility] Physical Exam Vital Signs: Temp Pulse Resp BP Pulse Ox 36.8 C 16 106/48 L 96 11/21/17 04:55 11/21/17 06:00 11/21/17 04:00 11/21/17 06:00 Intake & Output 11/19/17 11/20/17 11/21/17 06:59 06:59 06:59 Output Total 200 Balance -200 Physical Exam: The patient is an alert elderly white female appearing younger than her stated age evaluated on emergency room [facility]. She is alert interactive appropriate and appears to be relatively historically accurate. General appearance: PRESENT: no acute distress Head exam: PRESENT: normocephalic Respiratory exam: PRESENT: unlabored Cardiovascular exam: PRESENT: RRR Pulses: PRESENT: +1 pedal pulses bilateral Extremities exam: PRESENT: other - Patient is tender to palpation in the left inguinal region and pain is associated with passive range of motion of the left lower extremity. Leg lengths are equal. Distal neurovascular examination is intact. Neurological exam: PRESENT: alert, awake, oriented to person, oriented to place , oriented to time, oriented to situation. ABSENT: motor sensory deficit Psychiatric exam: PRESENT: appropriate affect, normal mood. ABSENT: homicidal ideation, suicidal ideation Skin exam: PRESENT: dry, intact, warm. ABSENT: cyanosis, rash Results Laboratory Results: 11/21/17 05:25 11/21/17 11/21/17 05:25 05:25 Sodium 133.1 L Potassium 4.1 Chloride 101 Carbon Dioxide 26 Anion Gap 6 BUN 25 H Creatinine 0.59 Est GFR ( Amer) > 60 Est GFR (Non-Af Amer) > 60 Glucose 107 Calcium 8.4 Magnesium 1.7 Impressions: Hip X-Ray 11/20/17 19:10 IMPRESSION: 1. Osteopenia. No radiographic evidence for acute fracture at the left hip. 2. Fractures with callus formation at the left superior and inferior pubic rami , suggestive of remote injury. Additional linear lucencies at the left pubic bone, may represent artifact versus nondisplaced acute fractures. No prior studies are available for comparison. Please correlate with clinical history/ exam. Chest X-Ray 11/20/17 19:31 IMPRESSION: Mild cardiomegaly. Otherwise, no acute radiographic finding in the chest. Pelvis CT 11/20/17 22:35 IMPRESSION: Comminuted fracture of the left superior pubic ramus with adjacent hematoma of the left obturator internus. No active hemorrhage identified. Consider CT surveillance in 24 hours or sooner as clinically warranted. Status: Imported from PACS Assessment & Plan - Diagnosis (1) Osteoporosis Is this a current diagnosis for this admission?: Yes Plan: Patient is being treated by Dr. Delgado with Prolia. Last DEXA scan was approximately 18 months ago. Results of which are not available today but presumably show some degree of osteoporosis (2) Lumbar arthropathy Is this a current diagnosis for this admission?: Yes Plan: Patient underwent evaluation in [facility] and is currently be treated by Dr. Marvin of [place] with serial injections. (3) Fracture of superior ramus of left pubis Qualifiers: Encounter type: initial encounter Fracture type: closed Qualified Code(s) : S32.512A - Fracture of superior rim of left pubis, initial encounter for closed fracture Is this a current diagnosis for this admission?: Yes Plan: Patient has had a similar fracture in the past and understands that nonoperative therapy is appropriate. She also understands that we will be some period of time measured in weeks that it will take before she becomes less uncomfortable with motion and weightbearing. The fracture is not unstable. The patient can weight-bear to comfort. - Time Time Spent: 50 to 70 Minutes Anticipated discharge: Other Within: Other
[2017-11-21] MEDS: DOCUSATE SODIUM 100 MG CAPSULE PO SCH ×2 (09:11→17:53)
--- NOTE | 2017-11-21 10:03 | EKG REPORT ---
SEVERITY:- ABNORMAL ECG - AFIB/FLUT AND V-PACED COMPLEXES LEFT BUNDLE BRANCH BLOCK : Confirmed by: Viji Jean 21-Nov-2017 10:02:49
--- NOTE | 2017-11-21 10:03 | EKG REPORT ---
SEVERITY:- ABNORMAL ECG - AFIB/FLUTTER AND VENTRICULAR-PACED RHYTHM : Confirmed by: Viji Jean 21-Nov-2017 10:02:56
[2017-11-21] MEDS ORDERED: METOPROLOL SUCCINATE 50 MG TAB.SR.24H PO ONE (12:30)
[2017-11-21] MEDS: TRAMADOL HCL 50 MG TABLET PO PRN ×2 (14:31→21:39)
[2017-11-21] MEDS ORDERED: OXYCODONE-ACETAMINOPHEN 5-325 MG TABLET ONE (15:14)
[2017-11-21] MEDS: CETIRIZINE 10 MG TABLET PO SCH (17:52)
--- NOTE | 2017-11-21 18:01 | PDOC PROGRESS REPORT ---
Subjective Progress Note for:: 11/21/17 Subjective:: The patient is an 87-year-old female. She tripped and fell at home. She presents with a fracture of the superior ramus of the left pubis. The patient was seen by orthopedic surgery and general surgery. The fracture has been complicated by a small hematoma. The patient uses Pradaxa for atrial fibrillation. Surgery has recommended holding the patient's Pradaxa. Orthopedic surgery has cleared the patient for weightbearing. If the patient's hemoglobin remains stable overnight she can be discharged to home with home occupational and physical therapy. She will also need a raised toilet seat at home. Reason For Visit: INTRACTABLE PAIN,PUBIC RAMI FX Physical Exam Vital Signs: Temp Pulse Resp BP Pulse Ox 97.9 F 77 16 113/51 L 92 11/21/17 17:00 11/21/17 17:00 11/21/17 17:00 11/21/17 17:00 11/21/17 17:00 Intake & Output 11/20/17 11/21/17 11/22/17 06:59 06:59 06:59 Output Total 200 50 Balance -200 -50 Additional comments: Patient is an extremely delightful elderly female who looks much younger than her stated age. Her cognition and mentation are appropriate. Her physical exam is essentially unremarkable. Her lungs are clear to auscultation bilaterally. Her cardiac exam is regular at this time. Her abdominal exam is benign. Her feet are warm to touch and she does not have any lower extremity edema. Results Laboratory Results: 11/21/17 05:25 11/21/17 11/21/17 05:25 05:25 Sodium 133.1 L Potassium 4.1 Chloride 101 Carbon Dioxide 26 Anion Gap 6 BUN 25 H Creatinine 0.59 Est GFR ( Amer) > 60 Est GFR (Non-Af Amer) > 60 Glucose 107 Calcium 8.4 Magnesium 1.7 Impressions: Hip X-Ray 11/20/17 19:10 IMPRESSION: 1. Osteopenia. No radiographic evidence for acute fracture at the left hip. 2. Fractures with callus formation at the left superior and inferior pubic rami , suggestive of remote injury. Additional linear lucencies at the left pubic bone, may represent artifact versus nondisplaced acute fractures. No prior studies are available for comparison. Please correlate with clinical history/ exam. Chest X-Ray 11/20/17 19:31 IMPRESSION: Mild cardiomegaly. Otherwise, no acute radiographic finding in the chest. Pelvis CT 11/20/17 22:35 IMPRESSION: Comminuted fracture of the left superior pubic ramus with adjacent hematoma of the left obturator internus. No active hemorrhage identified. Consider CT surveillance in 24 hours or sooner as clinically warranted. Assessment & Plan - Diagnosis (1) Fracture of superior ramus of left pubis Qualifiers: Encounter type: initial encounter Fracture type: closed Qualified Code(s) : S32.512A - Fracture of superior rim of left pubis, initial encounter for closed fracture Is this a current diagnosis for this admission?: Yes (2) Hematoma Is this a current diagnosis for this admission?: Yes (3) Fall Qualifiers: Encounter type: initial encounter Qualified Code(s): W19.XXXA - Unspecified fall, initial encounter Is this a current diagnosis for this admission?: Yes (4) Hypokalemia Is this a current diagnosis for this admission?: Yes - Time Time Spent with patient: 15-24 minutes - Inpatient Certification Medical Necessity: Need for Pain Control - Plan Summary Plan Summary: Patient did well earlier today with physical therapy. The recommendations from physical therapy are outlined above. The patient will need hemoglobin and hematocrit checked in the morning. If it is stable she can be discharged home. Surgery has recommended holding Pradaxa. Upon discharge we need to determine when it will be safe to restart the Pradaxa. The patient sees Dr. Vamsi Palacios of the [facility] who is her mexican food maker. She also sees Dr. Jefferson Downs who is her primary patient care director.
[2017-11-21] MEDS: OXYCODONE-ACETAMINOPHEN 5-325 MG TABLET PO PRN (23:31)
[2017-11-22] MEDS: OXYCODONE-ACETAMINOPHEN 5-325 MG TABLET PO PRN ×3 (03:56→18:27)
[2017-11-22 08:01] LABS: ABSOLUTE EOSINOPHILS # (AUTO) 0.1 10^3/uL (0.0-0.6); ABSOLUTE LYMPHOCYTES (AUTO) 1.1 10^3/uL (0.5-4.7); ABSOLUTE MONOCYTES (AUTO) 0.8 10^3/uL (0.1-1.4); ABSOLUTE NEUT (AUTO) 4.3 10^3/uL (1.7-8.2); BASOPHILS % (AUTO) 0.7 % (0-2); EOSINOPHILS % (AUTO) 1.5 % (0-6); LYMPHOCYTES % (AUTO) 17.2 % (13-45); MEAN CORPUSCULAR HEMOGLOBIN 33.4 pg (27.0-33.4); MEAN CORPUSCULAR HGB CONC 34.2 g/dL (32.0-36.0); MEAN CORPUSCULAR VOLUME 98 fl (80-97); MONOCYTES % (AUTO) 12.8 % (3-13); PLATELET COUNT 234 10^3/uL (150-450); RED BLOOD COUNT 3.07 10^6/uL (3.72-5.28); RED CELL DISTRIBUTION WIDTH 14.8 % (11.5-14.0); SEGMENTED NEUTROPHILS % (AUTO) 67.8 % (42-78); TOTAL CELLS COUNTED % (AUTO) 100 %; WHITE BLOOD COUNT 6.4 10^3/uL (4.0-10.5)
--- NOTE | 2017-11-22 08:01 | PDOC PROGRESS REPORT ---
Subjective Progress Note for:: 11/22/17 Subjective:: Pt states that the pain medication is helping with pain control. Pt states that she has not had a bowel movement since Tuesday. Pt states that she has concerns about having a bowel movement due to not being able to ambulate to the bathroom. Reason For Visit: INTRACTABLE PAIN,PUBIC RAMI FX Physical Exam Vital Signs: Temp Pulse Resp BP Pulse Ox 98.3 F 74 16 118/56 L 91 L 11/22/17 05:02 11/22/17 05:02 11/22/17 05:02 11/22/17 05:02 11/22/17 05:02 Intake & Output 11/21/17 11/22/17 11/23/17 06:59 06:59 06:59 Intake Total 800 Output Total 200 1250 Balance -200 -450 Weight 66.8 kg General appearance: PRESENT: no acute distress, well-developed, well-nourished Head exam: PRESENT: atraumatic, normocephalic Eye exam: PRESENT: conjunctiva pink, EOMI. ABSENT: scleral icterus Ear exam: PRESENT: normal external ear exam Mouth exam: PRESENT: moist, tongue midline Neck exam: PRESENT: carotid bruit Respiratory exam: PRESENT: clear to auscultation miguel. ABSENT: rales, rhonchi, wheezes Cardiovascular exam: PRESENT: RRR. ABSENT: diastolic murmur, rubs, systolic murmur Pulses: PRESENT: normal dorsalis pedis pul Vascular exam: PRESENT: normal capillary refill GI/Abdominal exam: PRESENT: normal bowel sounds, soft. ABSENT: distended, guarding, mass, organolmegaly, rebound, tenderness Rectal exam: PRESENT: deferred Extremities exam: PRESENT: full ROM, other - SCDs in place. ABSENT: calf tenderness, clubbing, pedal edema Neurological exam: PRESENT: alert, awake, oriented to person, oriented to place , oriented to time, oriented to situation, CN II-XII grossly intact. ABSENT: motor sensory deficit Psychiatric exam: PRESENT: appropriate affect, normal mood. ABSENT: homicidal ideation, suicidal ideation Skin exam: PRESENT: dry, intact, warm. ABSENT: cyanosis, rash Results Impressions: Hip X-Ray 11/20/17 19:10 IMPRESSION: 1. Osteopenia. No radiographic evidence for acute fracture at the left hip. 2. Fractures with callus formation at the left superior and inferior pubic rami , suggestive of remote injury. Additional linear lucencies at the left pubic bone, may represent artifact versus nondisplaced acute fractures. No prior studies are available for comparison. Please correlate with clinical history/ exam. Chest X-Ray 11/20/17 19:31 IMPRESSION: Mild cardiomegaly. Otherwise, no acute radiographic finding in the chest. Pelvis CT 11/20/17 22:35 IMPRESSION: Comminuted fracture of the left superior pubic ramus with adjacent hematoma of the left obturator internus. No active hemorrhage identified. Consider CT surveillance in 24 hours or sooner as clinically warranted. Assessment & Plan - Diagnosis (1) Constipation Is this a current diagnosis for this admission?: Yes Plan: Will write for stool softener and Magnesium Citrate. (2) Fracture of superior ramus of left pubis Qualifiers: Encounter type: initial encounter Fracture type: closed Qualified Code(s) : S32.512A - Fracture of superior rim of left pubis, initial encounter for closed fracture Is this a current diagnosis for this admission?: Yes Plan: Complicated by history of Osteoporosis: Will continue current pain medication. Pt working with PT/OT. Pt states that she is planning to go home with her daughter. (3) Fall Qualifiers: Encounter type: initial encounter Qualified Code(s): W19.XXXA - Unspecified fall, initial encounter Is this a current diagnosis for this admission?: Yes Plan: Pt will have home health for PT/OT. (4) Osteoporosis Is this a current diagnosis for this admission?: Yes Plan: Pt will follow up with outpatient physician. (5) Hematoma Is this a current diagnosis for this admission?: Yes Plan: Right sided hematoma: Will continue to monitor. H/H. Pt currently off Pradaxa. - Time Time Spent with patient: 15-24 minutes - Will check with collar worker about discharge needs. CBC pending this morning.
[2017-11-22 08:02] LABS: HEMOGLOBIN 10.3 g/dL (12.0-15.5)
[2017-11-22 08:12] LABS: ANION GAP 6 (5-19); BLOOD UREA NITROGEN 15 mg/dL (7-20); CALCIUM 7.9 mg/dL (8.4-10.2); CARBON DIOXIDE 25 mmol/L (22-30); CHLORIDE 103 mmol/L (98-107); GLUCOSE 111 mg/dL (75-110); POTASSIUM 3.9 mmol/L (3.6-5.0); SODIUM 134.3 mmol/L (137-145)
[2017-11-22] MEDS ORDERED: MAGNESIUM CITRATE 296 ML BOTTLE PO ONE (08:15)
[2017-11-22] MEDS ORDERED: GLYCERIN (ADULT) SUPP.RECT PR ONE (08:30)
[2017-11-22] MEDS: CALCIUM CARBONATE 250 MG/VITAMIN D3 125 UNIT TABLET PO SCH (08:33)
--- NOTE | 2017-11-22 08:43 | Physician Advisory Note ---
Physician Advisor ProgressNote .: [facility], I have reviewed the medical record for this patient. Physician Advisor Statement: Please consider documenting, if you agree: 1. "Anemia of Acute Blood Loss due to fx & hematoma" Status: Appropriately brought in initially as Obs. Medicare pt kept a 2nd MN to monitor H/H & confer w/her Lean Facilitator dana Jones based on her underlying Afib + above. Appropriate to change to Inpatient status as of 11/21 PM. CK
[2017-11-22] MEDS ORDERED: [UNRECOGNIZED DRUG - REMARK] PO SCH (10:00)
[2017-11-22] MEDS ORDERED: (PENDING PHARMACY ID) (Calcium Carbonate/Vitamin D3 [Caltrate 600 Plus D3 Tablet] 1 TAB) PO SCH (10:00)
[2017-11-22] MEDS ORDERED: CALCIUM PO SCH (10:00)
[2017-11-22] MEDS ORDERED: (PENDING PHARMACY ID) (Irbesartan [Irbesartan] 150 MG) PO SCH (10:00)
[2017-11-22] MEDS ORDERED: MV MN PO SCH (10:00)
[2017-11-22] MEDS ORDERED: [UNRECOGNIZED DRUG - OTHER] PO SCH (10:00)
[2017-11-22] MEDS ORDERED: VIT K PO SCH (10:00)
[2017-11-22] MEDS ORDERED: FOLIC ACID PO SCH (10:00)
[2017-11-22] MEDS: DOCUSATE SODIUM 100 MG CAPSULE PO SCH ×2 (11:00→18:28)
[2017-11-22] MEDS: LOSARTAN POTASSIUM 50 MG TABLET PO SCH (11:00)
[2017-11-22] MEDS: METOPROLOL SUCCINATE 50 MG TAB.SR.24H PO SCH (11:03)
[2017-11-22] MEDS: HYDROCHLOROTHIAZIDE 25 MG TABLET PO SCH (11:03)
[2017-11-22] MEDS: MULTIVITAMIN TABLET PO SCH (11:05)
[2017-11-22] MEDS: CETIRIZINE 10 MG TABLET PO SCH (18:24)
[2017-11-22] MEDS: TIMOLOL MALEATE 0.5% OPH SOLN 5 ML OU SCH (18:28)
[2017-11-22] MEDS: BRIMONIDINE TARTRATE 0.2% OPH SOLN 5 ML OU SCH (18:28)
[2017-11-23 07:38] LABS: ABSOLUTE EOSINOPHILS # (AUTO) 0.1 10^3/uL (0.0-0.6); ABSOLUTE MONOCYTES (AUTO) 0.7 10^3/uL (0.1-1.4); ABSOLUTE NEUT (AUTO) 4.8 10^3/uL (1.7-8.2); BASOPHILS % (AUTO) 0.5 % (0-2); EOSINOPHILS % (AUTO) 1.9 % (0-6); HEMATOCRIT 32.7 % (36.0-47.0); HEMOGLOBIN 11.2 g/dL (12.0-15.5); LYMPHOCYTES % (AUTO) 14.7 % (13-45); MEAN CORPUSCULAR HGB CONC 34.2 g/dL (32.0-36.0); MEAN CORPUSCULAR VOLUME 97 fl (80-97); MONOCYTES % (AUTO) 10.8 % (3-13); PLATELET COUNT 280 10^3/uL (150-450); RED BLOOD COUNT 3.39 10^6/uL (3.72-5.28); RED CELL DISTRIBUTION WIDTH 14.9 % (11.5-14.0); SEGMENTED NEUTROPHILS % (AUTO) 72.1 % (42-78); TOTAL CELLS COUNTED % (AUTO) 100 %; WHITE BLOOD COUNT 6.6 10^3/uL (4.0-10.5)
[2017-11-23 07:49] LABS: ALANINE AMINOTRANSFERASE 35 U/L (9-52); ALKALINE PHOSPHATASE 67 U/L (38-126); ANION GAP 7 (5-19); ASPARTATE AMINO TRANSFERASE 29 U/L (14-36); BILIRUBIN,DIRECT 0.3 mg/dL (0.0-0.4); BILIRUBIN,TOTAL 0.7 mg/dL (0.2-1.3); BLOOD UREA NITROGEN 11 mg/dL (7-20); CALCIUM 8.6 mg/dL (8.4-10.2); CARBON DIOXIDE 27 mmol/L (22-30); CHLORIDE 103 mmol/L (98-107); GLUCOSE 95 mg/dL (75-110); POTASSIUM 3.8 mmol/L (3.6-5.0); SODIUM 136.6 mmol/L (137-145); TOTAL PROTEIN 5.5 g/dL (6.3-8.2)
[2017-11-23] MEDS: CALCIUM CARBONATE 250 MG/VITAMIN D3 125 UNIT TABLET PO SCH (08:16)
[2017-11-23] MEDS: OXYCODONE-ACETAMINOPHEN 5-325 MG TABLET PO PRN ×2 (08:16→16:49)
--- NOTE | 2017-11-23 10:08 | PDOC PROGRESS REPORT ---
Subjective Progress Note for:: 11/23/17 Subjective:: States that she is feeling much better today. Patient was working with physical therapy and states that she is having a better time ambulating. Patient was reporting that she had 3 bowel movements yesterday after bowel prep. Nursing states that patient is requesting inpatient rehab. Reason For Visit: ACUTE BLOOD LOSS, ANEMIA SECONDARY TO HEMATOMA Physical Exam Vital Signs: Temp Pulse Resp BP Pulse Ox 98.0 F 76 16 153/82 H 94 11/23/17 07:44 11/23/17 07:44 11/23/17 07:44 11/23/17 07:44 11/23/17 07:44 Intake & Output 11/22/17 11/23/17 11/24/17 06:59 06:59 06:59 Weight 66.8 kg General appearance: PRESENT: no acute distress, well-developed, well-nourished Head exam: PRESENT: atraumatic, normocephalic Eye exam: PRESENT: conjunctiva pink, EOMI. ABSENT: scleral icterus Ear exam: PRESENT: normal external ear exam Mouth exam: PRESENT: moist, tongue midline Neck exam: ABSENT: carotid bruit, JVD, lymphadenopathy, thyromegaly Respiratory exam: PRESENT: clear to auscultation miguel. ABSENT: rales, rhonchi, wheezes Cardiovascular exam: PRESENT: RRR. ABSENT: diastolic murmur, rubs, systolic murmur Pulses: PRESENT: normal dorsalis pedis pul Vascular exam: PRESENT: normal capillary refill GI/Abdominal exam: PRESENT: normal bowel sounds, soft. ABSENT: distended, guarding, mass, organolmegaly, rebound, tenderness Rectal exam: PRESENT: deferred Extremities exam: PRESENT: full ROM. ABSENT: calf tenderness, clubbing, pedal edema Neurological exam: PRESENT: alert, awake, oriented to person, oriented to place , oriented to time, oriented to situation, CN II-XII grossly intact. ABSENT: motor sensory deficit Psychiatric exam: PRESENT: appropriate affect, normal mood. ABSENT: homicidal ideation, suicidal ideation Skin exam: PRESENT: dry, intact, warm. ABSENT: cyanosis, rash Results Laboratory Results: 11/23/17 06:33 11/23/17 06:33 11/23/17 11/23/17 06:33 06:33 WBC 6.6 RBC 3.39 L Hgb 11.2 L Hct 32.7 L MCV 97 MCH 33.0 MCHC 34.2 RDW 14.9 H Plt Count 280 Seg Neutrophils % 72.1 Lymphocytes % 14.7 Monocytes % 10.8 Eosinophils % 1.9 Basophils % 0.5 Absolute Neutrophils 4.8 Absolute Lymphocytes 1.0 Absolute Monocytes 0.7 Absolute Eosinophils 0.1 Absolute Basophils 0.0 Sodium 136.6 L Potassium 3.8 Chloride 103 Carbon Dioxide 27 Anion Gap 7 BUN 11 Creatinine 0.51 L Est GFR ( Amer) > 60 Est GFR (Non-Af Amer) > 60 Glucose 95 Calcium 8.6 Total Bilirubin 0.7 AST 29 ALT 35 Alkaline Phosphatase 67 Total Protein 5.5 L Albumin 3.0 L Impressions: Hip X-Ray 11/20/17 19:10 IMPRESSION: 1. Osteopenia. No radiographic evidence for acute fracture at the left hip. 2. Fractures with callus formation at the left superior and inferior pubic rami , suggestive of remote injury. Additional linear lucencies at the left pubic bone, may represent artifact versus nondisplaced acute fractures. No prior studies are available for comparison. Please correlate with clinical history/ exam. Chest X-Ray 11/20/17 19:31 IMPRESSION: Mild cardiomegaly. Otherwise, no acute radiographic finding in the chest. Pelvis CT 11/20/17 22:35 IMPRESSION: Comminuted fracture of the left superior pubic ramus with adjacent hematoma of the left obturator internus. No active hemorrhage identified. Consider CT surveillance in 24 hours or sooner as clinically warranted. Assessment & Plan - Diagnosis (1) Constipation Is this a current diagnosis for this admission?: Yes Plan: We will now place patient on MiraLAX. (2) Fracture of superior ramus of left pubis Qualifiers: Encounter type: initial encounter Fracture type: closed Qualified Code(s) : S32.512A - Fracture of superior rim of left pubis, initial encounter for closed fracture Is this a current diagnosis for this admission?: Yes Plan: Complicated by history of Osteoporosis: Patient requests inpatient rehab. Patient working with physical therapy and Occupational Therapy. We will continue patient's current pain regimen. (3) Fall Qualifiers: Encounter type: initial encounter Qualified Code(s): W19.XXXA - Unspecified fall, initial encounter Is this a current diagnosis for this admission?: Yes Plan: Arranging inpatient rehab (4) Osteoporosis Is this a current diagnosis for this admission?: Yes Plan: Pt will follow up with outpatient physician. (5) Hematoma Is this a current diagnosis for this admission?: Yes Plan: Right sided hematoma: Hemoglobin has remained stable. (6) Acute blood loss anemia Is this a current diagnosis for this admission?: Yes Plan: In setting of pelvic fracture while on Pradaxa: Patient's hemoglobin has remained stable. Will check CBC in a.m. (7) Hyponatremia Is this a current diagnosis for this admission?: Yes Plan: Resolving. Will continue to monitor. (8) DVT prophylaxis Is this a current diagnosis for this admission?: Yes Plan: SCDs - Time Time Spent with patient: 15-24 minutes - Pt awaiting for placement.
[2017-11-23] MEDS: MULTIVITAMIN TABLET PO SCH (10:26)
[2017-11-23] MEDS: LOSARTAN POTASSIUM 50 MG TABLET PO SCH (10:26)
[2017-11-23] MEDS: METOPROLOL SUCCINATE 50 MG TAB.SR.24H PO SCH (10:27)
[2017-11-23] MEDS: HYDROCHLOROTHIAZIDE 25 MG TABLET PO SCH (10:27)
[2017-11-23] MEDS: BRIMONIDINE TARTRATE 0.2% OPH SOLN 5 ML OU SCH ×2 (10:28→18:20)
[2017-11-23] MEDS: TIMOLOL MALEATE 0.5% OPH SOLN 5 ML OU SCH ×2 (10:28→18:20)
[2017-11-23] MEDS: DOCUSATE SODIUM 100 MG CAPSULE PO SCH ×2 (10:28→18:20)
[2017-11-23] MEDS: POLYETHYLENE GLYCOL 3350 POWDER 17 GM/1 PACKET PO SCH (11:42)
[2017-11-23] MEDS: TRAMADOL HCL 50 MG TABLET PO PRN (15:34)
[2017-11-23] MEDS: CETIRIZINE 10 MG TABLET PO SCH (18:18)
[2017-11-24] MEDS: OXYCODONE-ACETAMINOPHEN 5-325 MG TABLET PO PRN (00:24)
[2017-11-24] MEDS ORDERED: PROMETHAZINE HCL INJ 25 MG/1 ML VIAL ONE (04:16)
[2017-11-24] MEDS ORDERED: MECLIZINE HCL 25 MG TABLET PO PRN (04:18)
[2017-11-24] MEDS ORDERED: PROMETHAZINE HCL INJ 25 MG/1 ML VIAL IV PRN (04:18)
[2017-11-24 07:04] LABS: ABSOLUTE BASOPHILS # (AUTO) 0.1 10^3/uL (0.0-0.2); ABSOLUTE EOSINOPHILS # (AUTO) 0.2 10^3/uL (0.0-0.6); ABSOLUTE LYMPHOCYTES (AUTO) 0.9 10^3/uL (0.5-4.7); ABSOLUTE MONOCYTES (AUTO) 0.9 10^3/uL (0.1-1.4); ABSOLUTE NEUT (AUTO) 5.2 10^3/uL (1.7-8.2); BASOPHILS % (AUTO) 0.8 % (0-2); EOSINOPHILS % (AUTO) 2.5 % (0-6); HEMATOCRIT 32.9 % (36.0-47.0); HEMOGLOBIN 11.4 g/dL (12.0-15.5); LYMPHOCYTES % (AUTO) 12.6 % (13-45); MEAN CORPUSCULAR HEMOGLOBIN 33.5 pg (27.0-33.4); MEAN CORPUSCULAR HGB CONC 34.5 g/dL (32.0-36.0); MEAN CORPUSCULAR VOLUME 97 fl (80-97); MONOCYTES % (AUTO) 12.8 % (3-13); PLATELET COUNT 281 10^3/uL (150-450); RED BLOOD COUNT 3.39 10^6/uL (3.72-5.28); RED CELL DISTRIBUTION WIDTH 14.8 % (11.5-14.0); SEGMENTED NEUTROPHILS % (AUTO) 71.3 % (42-78); TOTAL CELLS COUNTED % (AUTO) 100 %; WHITE BLOOD COUNT 7.3 10^3/uL (4.0-10.5)
[2017-11-24 08:11] LABS: ANION GAP 9 (5-19); BLOOD UREA NITROGEN 17 mg/dL (7-20); CALCIUM 8.8 mg/dL (8.4-10.2); CARBON DIOXIDE 28 mmol/L (22-30); CHLORIDE 97 mmol/L (98-107); GLUCOSE 110 mg/dL (75-110); POTASSIUM 3.6 mmol/L (3.6-5.0); SODIUM 133.5 mmol/L (137-145)
[2017-11-24] MEDS: HYDROCHLOROTHIAZIDE 25 MG TABLET PO SCH (09:37)
[2017-11-24] MEDS: DOCUSATE SODIUM 100 MG CAPSULE PO SCH ×2 (09:37→18:31)
[2017-11-24] MEDS: METOPROLOL SUCCINATE 50 MG TAB.SR.24H PO SCH (09:37)
[2017-11-24] MEDS: MULTIVITAMIN TABLET PO SCH (09:37)
[2017-11-24] MEDS: TIMOLOL MALEATE 0.5% OPH SOLN 5 ML OU SCH ×2 (09:38→18:32)
[2017-11-24] MEDS: BRIMONIDINE TARTRATE 0.2% OPH SOLN 5 ML OU SCH ×2 (09:38→18:32)
[2017-11-24] MEDS: CALCIUM CARBONATE 250 MG/VITAMIN D3 125 UNIT TABLET PO SCH (09:38)
[2017-11-24] MEDS: LOSARTAN POTASSIUM 50 MG TABLET PO SCH (09:39)
--- NOTE | 2017-11-24 12:23 | Physician Advisory Note ---
Physician Advisor ProgressNote .: [facility], I have reviewed the medical record for this patient. Physician Advisor Statement: 2 minor documentation points to catch today: 1. Principal Dx: the main reason for hospitalization needs to be the dx #1 in each note. - "Constipation" is listed as dx #1 in last note, but "pelvic fx" was previously dx #1.... 2. Need to state "AABL due to acute fx & hematoma", if that is what is meant. Causality has to be explicit. - "In the setting of" isn't considered explicit enough about causality, as it can also be used in situations of unclear etiology, or incidental findings, or 1 dx superimposed on another dx, such as "acute abdominal pain in the setting of chronic infrarenal aortic aneursym, felt to most likely be due to ileus". Thanks for your help, and for your patience with navigating around the picky coding/payment rules that seem to require more & more of the drs' documentation these days. CK
[2017-11-24] MEDS: POLYETHYLENE GLYCOL 3350 POWDER 17 GM/1 PACKET PO SCH (13:19)
--- NOTE | 2017-11-24 13:58 | PDOC PROGRESS REPORT ---
Subjective Progress Note for:: 11/24/17 Subjective:: Patient states that she is doing okay. Patient states she is having difficulty with urination. Reason For Visit: ACUTE BLOOD LOSS, ANEMIA SECONDARY TO HEMATOMA Physical Exam Vital Signs: Temp Pulse Resp BP Pulse Ox 98.0 F 72 18 137/80 H 93 11/24/17 11:46 11/24/17 11:46 11/24/17 11:46 11/24/17 11:46 11/24/17 11:46 Intake & Output 11/23/17 11/24/17 11/25/17 06:59 06:59 06:59 Intake Total 440 Balance 440 Weight 66.8 kg 66.9 kg General appearance: PRESENT: no acute distress, well-developed, well-nourished Head exam: PRESENT: atraumatic, normocephalic Eye exam: PRESENT: conjunctiva pink, EOMI, PERRLA. ABSENT: scleral icterus Ear exam: PRESENT: normal external ear exam Mouth exam: PRESENT: moist, tongue midline Neck exam: ABSENT: carotid bruit, JVD, lymphadenopathy, thyromegaly Respiratory exam: PRESENT: clear to auscultation miguel. ABSENT: rales, rhonchi, wheezes Cardiovascular exam: PRESENT: RRR. ABSENT: diastolic murmur, rubs, systolic murmur Pulses: PRESENT: normal dorsalis pedis pul Vascular exam: PRESENT: normal capillary refill GI/Abdominal exam: PRESENT: normal bowel sounds, soft. ABSENT: distended, guarding, mass, organolmegaly, rebound, tenderness Rectal exam: PRESENT: deferred Extremities exam: PRESENT: full ROM. ABSENT: calf tenderness, clubbing, pedal edema Neurological exam: PRESENT: alert, awake, oriented to person, oriented to place , oriented to time, oriented to situation, CN II-XII grossly intact. ABSENT: motor sensory deficit Skin exam: PRESENT: dry, intact, warm. ABSENT: cyanosis, rash Results Laboratory Results: 11/24/17 06:54 11/24/17 06:54 11/24/17 11/24/17 06:54 06:54 WBC 7.3 RBC 3.39 L Hgb 11.4 L Hct 32.9 L MCV 97 MCH 33.5 H MCHC 34.5 RDW 14.8 H Plt Count 281 Seg Neutrophils % 71.3 Lymphocytes % 12.6 L Monocytes % 12.8 Eosinophils % 2.5 Basophils % 0.8 Absolute Neutrophils 5.2 Absolute Lymphocytes 0.9 Absolute Monocytes 0.9 Absolute Eosinophils 0.2 Absolute Basophils 0.1 Sodium 133.5 L Potassium 3.6 Chloride 97 L Carbon Dioxide 28 Anion Gap 9 BUN 17 Creatinine 0.55 Est GFR ( Amer) > 60 Est GFR (Non-Af Amer) > 60 Glucose 110 Calcium 8.8 Magnesium 2.0 Impressions: Hip X-Ray 11/20/17 19:10 IMPRESSION: 1. Osteopenia. No radiographic evidence for acute fracture at the left hip. 2. Fractures with callus formation at the left superior and inferior pubic rami , suggestive of remote injury. Additional linear lucencies at the left pubic bone, may represent artifact versus nondisplaced acute fractures. No prior studies are available for comparison. Please correlate with clinical history/ exam. Chest X-Ray 11/20/17 19:31 IMPRESSION: Mild cardiomegaly. Otherwise, no acute radiographic finding in the chest. Pelvis CT 11/20/17 22:35 IMPRESSION: Comminuted fracture of the left superior pubic ramus with adjacent hematoma of the left obturator internus. No active hemorrhage identified. Consider CT surveillance in 24 hours or sooner as clinically warranted. Assessment & Plan - Diagnosis (1) Acute blood loss anemia Is this a current diagnosis for this admission?: Yes Plan: In setting of pelvic fracture while on Pradaxa: Patient's hemoglobin has remained stable. (2) Fracture of superior ramus of left pubis Qualifiers: Encounter type: initial encounter Fracture type: closed Qualified Code(s) : S32.512A - Fracture of superior rim of left pubis, initial encounter for closed fracture Is this a current diagnosis for this admission?: Yes Plan: Complicated by history of Osteoporosis: Patient requests inpatient rehab. Patient working with physical therapy and Occupational Therapy. Will increase pain medication. (3) Urinary retention Is this a current diagnosis for this admission?: Yes Plan: Will check Bladder scan. (4) Constipation Is this a current diagnosis for this admission?: Yes Plan: Resolved. (5) Fall Qualifiers: Encounter type: initial encounter Qualified Code(s): W19.XXXA - Unspecified fall, initial encounter Is this a current diagnosis for this admission?: Yes Plan: Arranging inpatient rehab (6) Osteoporosis Is this a current diagnosis for this admission?: Yes Plan: Pt will follow up with outpatient physician. (7) Hematoma Is this a current diagnosis for this admission?: Yes Plan: Right sided hematoma: Hemoglobin has remained stable. (8) Hyponatremia Is this a current diagnosis for this admission?: Yes Plan: Resolving. Will continue to monitor. (9) DVT prophylaxis Is this a current diagnosis for this admission?: Yes Plan: SCDs - Time Time Spent with patient: Less than 15 minutes
[2017-11-24] MEDS: HYDROCODONE/ACETAMINOPHEN 7.5-325 MG TABLET PO PRN (15:37)
[2017-11-24] MEDS: CETIRIZINE 10 MG TABLET PO SCH (18:31)
[2017-11-25 06:46] LABS: ABSOLUTE BASOPHILS # (AUTO) 0.1 10^3/uL (0.0-0.2); ABSOLUTE EOSINOPHILS # (AUTO) 0.2 10^3/uL (0.0-0.6); ABSOLUTE LYMPHOCYTES (AUTO) 1.1 10^3/uL (0.5-4.7); ABSOLUTE MONOCYTES (AUTO) 0.9 10^3/uL (0.1-1.4); ABSOLUTE NEUT (AUTO) 3.2 10^3/uL (1.7-8.2); BASOPHILS % (AUTO) 1.2 % (0-2); HEMOGLOBIN 11.1 g/dL (12.0-15.5); MEAN CORPUSCULAR HEMOGLOBIN 33.3 pg (27.0-33.4); MEAN CORPUSCULAR HGB CONC 34.6 g/dL (32.0-36.0); MEAN CORPUSCULAR VOLUME 96 fl (80-97); MONOCYTES % (AUTO) 16.1 % (3-13); PLATELET COUNT 332 10^3/uL (150-450); RED BLOOD COUNT 3.32 10^6/uL (3.72-5.28); RED CELL DISTRIBUTION WIDTH 14.6 % (11.5-14.0); SEGMENTED NEUTROPHILS % (AUTO) 59.7 % (42-78); TOTAL CELLS COUNTED % (AUTO) 100 %; WHITE BLOOD COUNT 5.4 10^3/uL (4.0-10.5)
[2017-11-25 06:59] LABS: ALANINE AMINOTRANSFERASE 40 U/L (9-52); ALBUMIN 2.9 g/dL (3.5-5.0); ALKALINE PHOSPHATASE 70 U/L (38-126); ASPARTATE AMINO TRANSFERASE 28 U/L (14-36); BILIRUBIN,TOTAL 0.5 mg/dL (0.2-1.3); BLOOD UREA NITROGEN 16 mg/dL (7-20); CALCIUM 9.2 mg/dL (8.4-10.2); GLUCOSE 102 mg/dL (75-110); POTASSIUM 3.6 mmol/L (3.6-5.0); TOTAL PROTEIN 5.2 g/dL (6.3-8.2)
[2017-11-25 07:04] LABS: ANION GAP 5 (5-19); CARBON DIOXIDE 33 mmol/L (22-30); CHLORIDE 100 mmol/L (98-107); SODIUM 137.7 mmol/L (137-145)
[2017-11-25] MEDS: CALCIUM CARBONATE 250 MG/VITAMIN D3 125 UNIT TABLET PO SCH (09:48)
[2017-11-25] MEDS: HYDROCHLOROTHIAZIDE 25 MG TABLET PO SCH (09:48)
[2017-11-25] MEDS: DOCUSATE SODIUM 100 MG CAPSULE PO SCH (09:54)
[2017-11-25] MEDS: LOSARTAN POTASSIUM 50 MG TABLET PO SCH (09:54)
[2017-11-25] MEDS: MULTIVITAMIN TABLET PO SCH (09:55)
[2017-11-25] MEDS: METOPROLOL SUCCINATE 50 MG TAB.SR.24H PO SCH (09:55)
--- NOTE | 2017-11-25 10:11 | PDOC DISCHARGE SUMMARY ---
General - Admit/Disc Date/PCP Admission Date/Primary Care Provider: 11/22/17 16:53 BLAKE DELGADO MD Discharge Date: 11/25/17 - Discharge Diagnosis (1) Acute blood loss anemia Is this a current diagnosis for this admission?: Yes Summary: In setting of Pelvic Fracture while on Pradaxa: Patient's hemoglobin has remained stable while off Pradaxa. Patient's Pradaxa is on hold until patient has been given the okay by orthopedics to resume Pradaxa. (2) Fracture of superior ramus of left pubis Is this a current diagnosis for this admission?: Yes Summary: Complicated by history of osteoporosis: Patient going to rehab. Patient will continue to work with occupational and physical therapy. (3) Urinary retention Is this a current diagnosis for this admission?: Yes Summary: Patient was noted to have urinary retention. Patient's Bhandari has been removed. Patient has been able to void on her own. Patient will need a follow-up with urology as outpatient. (4) Constipation Is this a current diagnosis for this admission?: Yes Summary: She will need to continue on MiraLAX and Colace to help with bowel movements. (5) Fall Is this a current diagnosis for this admission?: Yes Summary: Patient will continue to work with PT OT. Patient is going to [facility] (6) Osteoporosis Is this a current diagnosis for this admission?: Yes Summary: Patient will follow-up with outpatient physician. (7) Hematoma Is this a current diagnosis for this admission?: Yes Summary: Secondary to fall in setting of Pradaxa: Pradaxa has been held. Orthopedics will have to state when they are okay with patient restarting Pradaxa. Patient' s hemoglobin has been stable (8) Hyponatremia Is this a current diagnosis for this admission?: Yes Summary: Resolved. - Additional Information Resuscitation Status: Full Code Discharge Diet: Cardiac Prescriptions: Hydrocodone/Acetaminophen [Hermitage 7.5-325 mg Tablet] 1 tab PO Q6HP PRN #10 tablet PRN Reason: Tramadol HCl [Ultram 50 mg Tablet] 50 mg PO TIDP PRN #5 tablet PRN Reason: For Pain Home Medications: Antiox.mv No.10/Omeg3s/Lut/Elba [I-Caps with Lutein-Belding 3 Sfg] 1 cap PO DAILY 11/21/17 Brimonidine Tartrate/Timolol [Combigan 0.2%-0.5% Eye Drops] 1 drop BTH_EYE BID@ 0700,1900 11/21/17 Calcium Carbonate/Vitamin D3 [Caltrate 600 Plus D3 Tablet] 1 tab PO DAILY Cetirizine HCl [Zyrtec 10 mg Tablet] 1 tab PO QPM 11/21/17 Hydrochlorothiazide 25 mg PO DAILY 11/21/17 Irbesartan 150 mg PO DAILY 11/21/17 Metoprolol Succinate [Toprol Xl] 50 mg PO DAILY 11/21/17 Mv-Mn/Folic Acid/Calcium/Vit K [Women's 50 Plus Daily Formula] 1 tab PO DAILY Docusate Sodium [Colace 100 mg Capsule] 100 mg PO BID capsule 11/25/17 Hydrocodone/Acetaminophen [Hermitage 7.5-325 mg Tablet] 1 tab PO Q6HP PRN #10 tablet 11/25/17 Mag Hydrox/Al Hydrox/Simeth [Maalox Plus Susp 30 Udcup] 30 ml PO Q6HP PRN udc 11/25/17 Meclizine HCl [Antivert 25 mg Tablet] 25 mg PO Q8HP PRN tablet 11/25/17 Polyethylene Glycol 3350 [Miralax Powder 17 gm/Packet] 17 gm PO NOON powd.pack 11/25/17 Tramadol HCl [Ultram 50 mg Tablet] 50 mg PO TIDP PRN #5 tablet 11/25/17 History of Present Illness Patient complains of: Fall History of Present Illness: CATHERINE ARANGO is a 87 year old female presented to our hospital after falling at home. Patient was found to have a pelvic fracture with hematoma present. Patient initially it stated that she was going home with her daughter however when family saw how much assistance she needed they recommended that she go to rehab. Patient's hemoglobin has been stable. Patient has been able to work with physical therapy with ambulation and transitioning from bed to chair. Patient was noted to have some electrolyte abnormalities which have resolved. She was noted to have urinary retention and Bhandari was placed. Bhandari has been removed and patient has been able to avoid on her home. Patient will be arranged for outpatient urology appointment. Hospital Course Hospital Course: CATHERINE ARANGO is a 87 year old female presented to our hospital after falling at home. Patient was found to have a pelvic fracture with hematoma present. Patient initially it stated that she was going home with her daughter however when family saw how much assistance she needed they recommended that she go to rehab. Patient's hemoglobin has been stable. Patient has been able to work with physical therapy with ambulation and transitioning from bed to chair. Patient was noted to have some electrolyte abnormalities which have resolved. She was noted to have urinary retention and Bhandari was placed. Bhandari has been removed and patient has been able to avoid on her home. Patient will be arranged for outpatient urology appointment. Patient currently off Pradaxa. Patient will need to follow-up with Orth O and primary physician to determine when patient should resume Pradaxa. Physical Exam Vital Signs: Temp Pulse Resp BP Pulse Ox 98.2 F 83 20 139/77 H 97 11/25/17 04:01 11/25/17 04:01 11/25/17 04:01 11/25/17 04:01 11/25/17 04:01 Intake & Output 11/24/17 11/25/17 11/26/17 06:59 06:59 06:59 Intake Total 440 928 Output Total 2040 Balance 440 -1112 Weight 66.9 kg General appearance: PRESENT: no acute distress, well-developed, well-nourished Head exam: PRESENT: atraumatic, normocephalic Eye exam: PRESENT: conjunctiva pink, EOMI. ABSENT: scleral icterus Ear exam: PRESENT: normal external ear exam Mouth exam: PRESENT: moist, tongue midline Neck exam: ABSENT: carotid bruit, JVD, lymphadenopathy, thyromegaly Respiratory exam: PRESENT: clear to auscultation miguel. ABSENT: rales, rhonchi, wheezes Pulses: PRESENT: normal dorsalis pedis pul Vascular exam: PRESENT: normal capillary refill GI/Abdominal exam: PRESENT: normal bowel sounds, soft. ABSENT: distended, guarding, mass, organolmegaly, rebound, tenderness Rectal exam: PRESENT: deferred Extremities exam: ABSENT: calf tenderness, clubbing, pedal edema Neurological exam: PRESENT: alert, awake, oriented to person, oriented to place , oriented to time, oriented to situation, CN II-XII grossly intact. ABSENT: motor sensory deficit Psychiatric exam: PRESENT: appropriate affect, normal mood. ABSENT: homicidal ideation, suicidal ideation Skin exam: PRESENT: dry, intact, warm. ABSENT: cyanosis, rash Results Laboratory Results: 11/25/17 06:34 11/25/17 06:34 11/25/17 11/25/17 06:34 06:34 WBC 5.4 RBC 3.32 L Hgb 11.1 L Hct 32.0 L MCV 96 MCH 33.3 MCHC 34.6 RDW 14.6 H Plt Count 332 Seg Neutrophils % 59.7 Lymphocytes % 20.0 Monocytes % 16.1 H Eosinophils % 3.0 Basophils % 1.2 Absolute Neutrophils 3.2 Absolute Lymphocytes 1.1 Absolute Monocytes 0.9 Absolute Eosinophils 0.2 Absolute Basophils 0.1 Sodium 137.7 Potassium 3.6 Chloride 100 Carbon Dioxide 33 H Anion Gap 5 BUN 16 Creatinine 0.54 Est GFR ( Amer) > 60 Est GFR (Non-Af Amer) > 60 Glucose 102 Calcium 9.2 Total Bilirubin 0.5 AST 28 ALT 40 Alkaline Phosphatase 70 Total Protein 5.2 L Albumin 2.9 L Impressions: Hip X-Ray 11/20/17 19:10 IMPRESSION: 1. Osteopenia. No radiographic evidence for acute fracture at the left hip. 2. Fractures with callus formation at the left superior and inferior pubic rami , suggestive of remote injury. Additional linear lucencies at the left pubic bone, may represent artifact versus nondisplaced acute fractures. No prior studies are available for comparison. Please correlate with clinical history/ exam. Chest X-Ray 11/20/17 19:31 IMPRESSION: Mild cardiomegaly. Otherwise, no acute radiographic finding in the chest. Pelvis CT 11/20/17 22:35 IMPRESSION: Comminuted fracture of the left superior pubic ramus with adjacent hematoma of the left obturator internus. No active hemorrhage identified. Consider CT surveillance in 24 hours or sooner as clinically warranted. Qualifiers - * PATEINT BEING DISCHARGED WITH ANY OF THE FOLLOWING DIAGNOSIS?: No Plan Time Spent: Greater than 30 Minutes
[2017-11-25 11:24] VITALS: BP 151/69
[2017-11-25] MEDS: BRIMONIDINE TARTRATE 0.2% OPH SOLN 5 ML OU SCH (11:35)
[2017-11-25] MEDS: TIMOLOL MALEATE 0.5% OPH SOLN 5 ML OU SCH (11:35)
[2017-11-25] MEDS: POLYETHYLENE GLYCOL 3350 POWDER 17 GM/1 PACKET PO SCH (12:31)
[2017-11-25] MEDS: HYDROCODONE/ACETAMINOPHEN 7.5-325 MG TABLET PO PRN (15:25)
== END 2017-11-25 15:35 | DRG 813 ==
LOC: ER 18:59 → EH 11-21 03:32 → 2S 11-21 07:40 → OBSVTOIN 11-22 16:53
PROVIDERS: ADMIT Internal Medicine; ATTEND Internal Medicine
DX: D68.32 Hemorrhagic disorder due to extrinsic circulating anticoagulants (principal); M80.052A Age-related osteoporosis with current pathological fracture, left femur, initial encounter for fracture; D62 Acute posthemorrhagic anemia; I48.91 Unspecified atrial fibrillation; T45.515A Adverse effect of anticoagulants, initial encounter; E87.6 Hypokalemia; W18.30XA Fall on same level, unspecified, initial encounter; Y92.009 Unspecified place in unspecified non-institutional (private) residence as the place of occurrence of the external cause; K59.00 Constipation, unspecified; R33.9 Retention of urine, unspecified; I10 Essential (primary) hypertension; M54.9 Dorsalgia, unspecified; M41.9 Scoliosis, unspecified; R26.81 Unsteadiness on feet; Z79.01 Long term (current) use of anticoagulants; Z86.73 Personal history of transient ischemic attack (TIA), and cerebral infarction without residual deficits; Z95.0 Presence of cardiac pacemaker; Z82.49 Family history of ischemic heart disease and other diseases of the circulatory system; Z88.8 Allergy status to other drugs, medicaments and biological substances; Z87.81 Personal history of (healed) traumatic fracture
CPT/HCPCS: 36415; 51702; 71046; 72192; 72193; 80048; 80053; 81001; 82550; 82553; 83735; 84484; 85025; 85610; 85730; 93005; 93010; 96361; 96374; 96375; 99285; G0378; G8978-GP; G8979-GP; G8987-GO; G8988-GO; J1885; J2270; J2550; J3490; J7030; S0119